=== PATIENT | male | born 1980 | race Caucasian/White ===

== ENCOUNTER → 2022-03-09 | Outpatient (CLI) | payer BC ==
--- NOTE | 2022-03-10 05:11 | MR ---
EXAMINATION TYPE: MR shoulder LT wo con DATE OF EXAM: 03/09/2022 COMPARISON: None HISTORY: Left Shoulder Pain since mid-October due to a fall on ice Multiplanar multiecho imaging of the left shoulder with no contrast. There is large rotator cuff tear with some retraction of the supraspinatus tendon. There is a shoulde r joint effusion and subdeltoid effusion. There is fluid around the biceps tendon. Subscapularis tendon appears intact. The glenoid [place] appea r intact. There is some mild thickening of the biceps tendon that could relate to a tear. There is na rrowing of the glenohumeral joint space with spur formation. There is spurring at the AC joint. No fr acture seen. The infraspinatus tendon appears intact. Impression rotator cuff tear on the anterior aspect of the tendon with some partial retraction. Shoulder joint e ffusion and subdeltoid effusion. There is probably partial tear of the biceps tendon or biceps tendin itis. Osteoarthritic narrowing of the shoulder joint space.
== END | disposition home or self-care (01) ==
LOC: RADMRIMAIN 19:12
PROVIDERS: ATTEND Family Medicine
DX: M75.112 Incomplete rotator cuff tear or rupture of left shoulder, not specified as traumatic (principal); M19.012 Primary osteoarthritis, left shoulder

== ENCOUNTER 2022-07-21 20:51 | Emergency (ER) | payer BC ==
[2022-07-21 21:29] VITALS: BP 131/86; RESP 16; TEMP 97.8
[2022-07-21 22:20] LABS: Basophils % (A) 0 %; Eosinophils # (A) 0.1 k/uL (0-0.7); Eosinophils % (A) 1 %; HCT 44.4 % (39.0-53.0); HGB 15.4 gm/dL (13.0-17.5); Lymphocytes # (A) 1.4 k/uL (1.0-4.8); Lymphocytes % (A) 13 %; MCH 31.8 pg (25.0-35.0); MCHC 34.6 g/dL (31.0-37.0); MCV 91.8 fL (80.0-100.0); Mean Platelet Volume 7.2; Monocytes # (A) 0.8 k/uL (0-1.0); Monocytes % (A) 7 %; Neutrophils # (A) 8.7 k/uL (1.3-7.7); Neutrophils % (A) 76 %; Platelet Count 222 k/uL (150-450); RBC 4.84 m/uL (4.30-5.90); WBC 11.4 k/uL (3.8-10.6)
[2022-07-21 22:30] LABS: ALT 26 U/L (4-49); AST 26 U/L (17-59); African American GFR (CKD) >90 (>60 ml/min/1.73 sqM); Albumin 4.9 g/dL (3.5-5.0); Alkaline Phosphatase 72 U/L (38-126); Anion Gap 9 mmol/L; Blood Urea Nitrogen 18 mg/dL (9-20); Calcium 9.4 mg/dL (8.4-10.2); Carbon Dioxide 25 mmol/L (22-30); Chloride 102 mmol/L (98-107); Glucose 108 mg/dL (74-99); INR 0.9 (<1.2); Non-African American GFR(CKD) >90 (>60 ml/min/1.73 sqM); Partial Thromboplastin Time 25.4 sec (22.0-30.0); Potassium 4.3 mmol/L (3.5-5.1); Sodium 136 mmol/L (137-145); Total Bilirubin 0.5 mg/dL (0.2-1.3); Total Protein 7.2 g/dL (6.3-8.2)
--- NOTE | 2022-07-21 23:15 | XR ---
EXAMINATION TYPE: XR chest 2V DATE OF EXAM: 07/21/2022 COMPARISON: NONE HISTORY: Dizziness TECHNIQUE: 2 views FINDINGS: Heart and mediastinum are normal. Lungs are clear. Images normal. Bony thorax is normal. IMPRESSION: Normal chest.
[2022-07-22 00:20] VITALS: PULSE 84
--- NOTE | 2022-07-22 01:38 | CT ---
EXAMINATION TYPE: CT brain cspine wo con DATE OF EXAM: 07/22/2022 COMPARISON: None HISTORY: HIGH BP, LT ARM WEAKNESS CT DLP: 1413.9 mGycm Automated exposure control for dose reduction was used. Images of the brain and cervical spine obtained with no contrast. Ventricles and sulci appear normal. There is no mass effect or midline shift. No sign of intracranial hemorrhage. Calvarium is intact. The skull base is intact. There is normal aeration of the mastoid s inuses. There is normal alignment of the vertebra. Posterior elements are intact. There is some spurring of t he endplates at C3-4 and C4-5. IMPRESSION: Negative CT scan of the brain. Minor degenerative disc changes in the cervical spine. No fracture.
--- NOTE | 2022-07-22 01:47 | CT ---
EXAMINATION TYPE: CT angio head neck DATE OF EXAM: 07/22/2022 COMPARISON: None HISTORY: HIGH BP, LT ARM WEAKNESS CT DLP: 661.7 mGycm Automated exposure control for dose reduction was used. CONTRAST: Performed with IV Contrast, patient injected with 65 mL of Isovue 370. Images obtained from the aortic arch to the vertex of the brain with IV contrast. There are 3-D post processed images. There is normal branching pattern of the great vessels on the aortic arch. There is bilateral arteria l flow in the subclavian arteries. There is arterial flow in the common internal and external carotid arteries bilaterally. There is wide patency of the carotid artery bifurcations. There is arterial fl ow in both vertebral arteries. There is arterial flow in the vertebrobasilar artery system. No eviden ce of carotid or vertebral artery aneurysm or dissection. There is arterial flow in the anterior middle and posterior cerebral arteries bilaterally. No mass ef fect. No evidence of intracranial aneurysm or neovascularity. There is normal opacification of the ve nous sinuses. No evidence of intracranial arterial stenosis. IMPRESSION: Negative CT angiogram of the neck. Negative CT angiogram of the brain.
[2022-07-22] MEDS ORDERED: methylPREDNISolone SOD SUCCI 125 MG/2 ML VIAL IV STA (02:08)
--- NOTE | 2022-07-22 02:10 | ED ---
Weakness HPI - General Chief complaint: Weakness Stated complaint: Chest Pain,High BP Time Seen by Provider: 07/21/22 23:42 Source: patient Mode of arrival: ambulatory Limitations: no limitations - History of Present Illness Initial comments: 42-year-old male with no reported past medical history who presents to the emergency room with reported numbness to his left arm. He states that he was driving when he had sudden onset of some paresthesias to his left arm. States that the pain starts in the left shoulder and radiates down to his left hand. H e is right-hand dominant. 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 Symptoms became progressively worse and started encroaching on the left chest. Patient became concerned for stroke and heart attack therefore presented to the hospital. He denies previous history of stroke or heart attack. His grandfather in his 60s due to an [place]. He does admit to some retained numbness in the left arm. He does admit to neck pain. No active chest pain. Denies fevers, chills or cough. No involvement of the numbness or tingling in the left leg. He denies facial droop or speech difficulties. No other alleviating, precipitating or modifying factors - Related Data Previous Rx's Medication Instructions Recorded predniSONE [Deltasone] 20 mg PO BID #10 tab 07/22/22 Allergies Allergy/AdvReac Type Severity Reaction Status Date / Time No Known Allergies Allergy Verified 07/21/22 21:29 Review of Systems ROS Statement: Those systems with pertinent positive or pertinent negative responses have been documented in the HPI. ROS Other: All systems not noted in ROS Statement are negative. Past Medical History Additional Past Medical History / Comment(s): hernia History of Any Multi-Drug Resistant Organisms: None Reported Past Surgical History: Cholecystectomy Past Psychological History: No Psychological Hx Reported Smoking Status: Current every day smoker Past Alcohol Use History: None Reported Past Drug Use History: None Reported General Exam Limitations: no limitations General appearance: alert, in no apparent distress Head exam: Present: atraumatic, normocephalic, normal inspection Eye exam: Present: normal appearance, PERRL, EOMI. Absent: scleral icterus, conjunctival injection, periorbital swelling ENT exam: Present: normal exam, mucous membranes moist Neck exam: Present: normal inspection. Absent: tenderness, meningismus, lymphadenopathy Respiratory exam: Present: normal lung sounds bilaterally. Absent: respiratory distress, wheezes, rales, rhonchi, stridor Cardiovascular Exam: Present: regular rate, normal rhythm, normal heart sounds. Absent: systolic murmur, diastolic murmur, rubs, gallop, clicks GI/Abdominal exam: Present: soft, normal bowel sounds. Absent: distended, tenderness, guarding, rebound, rigid Extremities exam: Present: normal inspection, full ROM, normal capillary refill. Absent: tenderness, pedal edema, joint swelling, calf tenderness Back exam: Present: normal inspection Neurological exam: Present: alert, oriented X3, CN II-XII intact Psychiatric exam: Present: normal affect, normal mood Skin exam: Present: warm, dry, intact, normal color. Absent: rash Course Vital Signs 07/21/22 07/22/22 21:23 00:16 Temperature 97.8 F Pulse Rate 86 Pulse Rate [ 84 Apical] Respiratory 16 Rate Blood Pressure 131/86 O2 Sat by Pulse 96 Oximetry EKG Findings - EKG Comments: EKG Findings:: EKG demonstrates sinus rhythm with a rate of 71. NC interval 166. QRS 101. QTC of 398. No acute ST segment elevations or depressions concerning for ischemic changes Medical Decision Making - Medical Decision Making Upon arrival patient was placed into room 3. A thorough history and physical exam was performed. Patient did spend a considerable amount of time in the waiting room. By the time I evaluate the patient's he does have laboratory studies are completed which demonstrate a negative troponin level. I do feel that the patient needs CT of his head and neck due to his reported symptoms of left arm numbness. CT of the head and neck is performed which demonstrates no acute intracranial process. No stenosis, aneurysm. Patient does have spurring of endplates at C3-C4 and C4 to C5. A second troponin was performed which was negative These results are discussed with the patient. I did discuss the diagnosis, differential and treatment options. Patient was given Solu-Medrol 125 in the emergency department for possible cervical radiculopathy. He will be placed on prednisone in the outpatient setting. Instructed to follow-up with his primary care doctor for further evaluation. May warrant an MRI of his head and neck if symptoms persist. Return for any new or worsening symptoms. Patient was agreeable to treatment plan he was discharged home in stable condition - Lab Data Result diagrams: 07/21/22 22:00 11/29/22 22:00 Lab Results 07/21/22 07/21/22 07/21/22 Range/Units 22:00 22:00 22:00 WBC 11.4 H (3.8-10.6) k/uL RBC 4.84 (4.30-5.90) m/uL Hgb 15.4 (13.0-17.5) gm/dL Hct 44.4 (39.0-53.0) % MCV 91.8 (80.0-100.0) fL MCH 31.8 (25.0-35.0) pg MCHC 34.6 (31.0-37.0) g/dL RDW 12.0 (11.5-15.5) % Plt Count 222 (150-450) k/uL MPV 7.2 Neutrophils % 76 % Lymphocytes % 13 % Monocytes % 7 % Eosinophils % 1 % Basophils % 0 % Neutrophils # 8.7 H (1.3-7.7) k/uL Lymphocytes # 1.4 (1.0-4.8) k/uL Monocytes # 0.8 (0-1.0) k/uL Eosinophils # 0.1 (0-0.7) k/uL Basophils # 0.0 (0-0.2) k/uL PT 10.0 (9.0-12.0) sec INR 0.9 (<1.2) APTT 25.4 (22.0-30.0) sec Sodium 136 L (137-145) mmol/L Potassium 4.3 (3.5-5.1) mmol/L Chloride 102 (98-107) mmol/L Carbon Dioxide 25 (22-30) mmol/L Anion Gap 9 mmol/L BUN 18 (9-20) mg/dL Creatinine 0.86 (0.66-1.25) mg/dL Est GFR (CKD-EPI)AfAm >90 (>60 ml/min/1.73 sqM) Est GFR (CKD-EPI)NonAf >90 (>60 ml/min/1.73 sqM) Glucose 108 H (74-99) mg/dL Calcium 9.4 (8.4-10.2) mg/dL Magnesium 2.0 (1.6-2.3) mg/dL Total Bilirubin 0.5 (0.2-1.3) mg/dL AST 26 (17-59) U/L ALT 26 (4-49) U/L Alkaline Phosphatase 72 (38-126) U/L Troponin I (0.000-0.034) ng/mL Total Protein 7.2 (6.3-8.2) g/dL Albumin 4.9 (3.5-5.0) g/dL 07/21/22 07/22/22 Range/Units 22:00 00:23 WBC (3.8-10.6) k/uL RBC (4.30-5.90) m/uL Hgb (13.0-17.5) gm/dL Hct (39.0-53.0) % MCV (80.0-100.0) fL MCH (25.0-35.0) pg MCHC (31.0-37.0) g/dL RDW (11.5-15.5) % Plt Count (150-450) k/uL MPV Neutrophils % % Lymphocytes % % Monocytes % % Eosinophils % % Basophils % % Neutrophils # (1.3-7.7) k/uL Lymphocytes # (1.0-4.8) k/uL Monocytes # (0-1.0) k/uL Eosinophils # (0-0.7) k/uL Basophils # (0-0.2) k/uL PT (9.0-12.0) sec INR (<1.2) APTT (22.0-30.0) sec Sodium (137-145) mmol/L Potassium (3.5-5.1) mmol/L Chloride (98-107) mmol/L Carbon Dioxide (22-30) mmol/L Anion Gap mmol/L BUN (9-20) mg/dL Creatinine (0.66-1.25) mg/dL Est GFR (CKD-EPI)AfAm (>60 ml/min/1.73 sqM) Est GFR (CKD-EPI)NonAf (>60 ml/min/1.73 sqM) Glucose (74-99) mg/dL Calcium (8.4-10.2) mg/dL Magnesium (1.6-2.3) mg/dL Total Bilirubin (0.2-1.3) mg/dL AST (17-59) U/L ALT (4-49) U/L Alkaline Phosphatase (38-126) U/L Troponin I <0.012 <0.012 (0.000-0.034) ng/mL Total Protein (6.3-8.2) g/dL Albumin (3.5-5.0) g/dL Disposition Clinical Impression: Arm paresthesia, left Disposition: HOME SELF-CARE Condition: Stable Instructions (If sedation given, give patient instructions): Paresthesia (ED) Additional Instructions: Please take the medications as directed starting . Follow up with your primary care doctor in 2-4 days for further testing. May require MRI or an echo of your heart. Return to the emergency room should you have any new or worsening symptoms Prescriptions: predniSONE [Deltasone] 20 mg PO BID #10 tab Is patient prescribed a controlled substance at d/c from ED?: No Referrals: None,Stated [Primary Care Provider] - 1-2 days Time of Disposition: 02:10
== END 2022-07-22 02:31 | disposition home or self-care (01) ==
LOC: EC 20:51
DX: R20.2 Paresthesia of skin (principal); F17.200 Nicotine dependence, unspecified, uncomplicated; Z90.49 Acquired absence of other specified parts of digestive tract
CPT/HCPCS: 36415 ×2; 93005; 80053; 83735; 84484 ×2; 85025; 85610; 85730; 71046; 72125; 70496; 70450; 70498; 99285; Q9967